=== PATIENT | female | born 1955 | race Caucasian/White ===

== ENCOUNTER 2018-06-25 16:36 | Emergency (ER) | payer MEDICARE, MEDICAID ==
[~2018-06-25] VITALS: Ht 167.6 cm; Wt 77.0 kg
[2018-06-25] MEDS ORDERED: CYCLOBENZAPRINE 10MG TABLET PO ONE (20:15)
[2018-06-25] MEDS ORDERED: KETOROLAC 15MG/ML VIAL IM ONE (20:15)
[2018-06-25 23:38] VITALS: BP 145/69
== END 2018-06-25 23:40 | disposition home or self-care (01) ==
LOC: ER 16:36
DX: T14.90XA Injury, unspecified, initial encounter (principal); M25.562 Pain in left knee; M25.561 Pain in right knee; M54.5 Low back pain; M54.2 Cervicalgia; F41.9 Anxiety disorder, unspecified; I10 Essential (primary) hypertension; Z86.73 Personal history of transient ischemic attack (TIA), and cerebral infarction without residual deficits; Z88.5 Allergy status to narcotic agent; W18.09XA Striking against other object with subsequent fall, initial encounter; Y93.89 Activity, other specified; Y92.481 Parking lot as the place of occurrence of the external cause
CPT/HCPCS: 72100; 73562; 96372; 99283; J1885